=== PATIENT | female | born 1960 | race Caucasian/White ===

== ENCOUNTER 2018-03-09 07:31 | Emergency (ER) | payer SELFPAY ==
[~2018-03-09] VITALS: Ht 157.5 cm; Wt 82.0 kg
[~2018-03-09 07:31] MED LIST: CALC600T44 PO; IBUP800 PO; OXYC-360 PO
[2018-03-09 07:41] VITALS: BP 147/83; PULSE 99; RESP 17; TEMP 98.4; O2SAT 98
[2018-03-09 07:51] VITALS: BP 137/71; PULSE 94; RESP 18; TEMP 97.7; O2SAT 98
--- NOTE | 2018-03-09 07:54 | PD ---
HPI Chief Complaint: Abdominal Pain Time Seen by Provider: 07:48 Travel History International Travel<30 days: No Contact w/Intl Traveler<30days: No Traveled to known affect area: No History of Present Illness HPI This is a 57-year-old female who presents to the emergency department with 1 week of epigastric abdominal pain, intermittent, worse immediately after eating , nonradiating, with no vomiting, fevers or chills. She has had pain like this in the past and has been told it is her stomach. She went to her primary care doctor who prescribed her Pepcid but that has not been helping and her pain has been getting worse so she came to the emergency department. She has no history of abdominal surgeries. FOR[facility]LY [facility] Past Medical History Hypertension: Yes Migraines: Yes Past Surgical History Surgical History: No Previous Surgery Social History Alcohol Use: No Tobacco Use: No Substance Use: No Allergies-Medications (Allergen,Severity, Reaction): Coded Allergies: Sulfa (Sulfonamide Antibiotics) (Unverified Allergy, Intermediate, RASH, ) Reported Meds & Prescriptions Reported Meds & Active Scripts Active Review of Systems Except as stated in HPI: all other systems reviewed are Neg Physical Exam Narrative GENERAL:Well appearing, no acute distress SKIN: Focused skin assessment warm and dry. HEAD: Atraumatic. Normocephalic. EYES: Pupils equal and round. No injection or drainage. ENT: Moist mucous membranes NECK: Trachea midline. CARDIOVASCULAR: Regular rate and rhythm. No murmur appreciated. RESPIRATORY: Clear to auscultation. Breath sounds equal bilaterally. GASTROINTESTINAL: Abdomen soft, tender to palpation in the epigastrium with no rebound or guarding. MUSCULOSKELETAL: No obvious deformities. NEUROLOGICAL: Awake and alert. No obvious cranial nerve deficits. Moving all extremities. PSYCHIATRIC: Appropriate mood and affect; insight and judgment normal. Data Data Last Documented VS Vital Signs Date Time Temp Pulse Resp B/P (MAP) Pulse Ox O2 Delivery O2 Flow Rate FiO2 03/09/18 08:22 98 Room Air 03/09/18 07:51 97.7 94 18 Orders Orders Complete Blood Count With Diff (03/09/18 07:52) Comprehensive Metabolic Panel (03/09/18 07:52) Lipase (03/09/18 07:52) Us Abdomen Gallbladder (03/09/18 ) Iv Access Insert/Monitor (03/09/18 07:52) Ecg Monitoring (03/09/18 07:52) Oximetry (03/09/18 07:52) Sodium Chloride 0.9% Flush (Ns Flush) (03/09/18 08:00) Al-Mag Hy-Si 40-40-4 Mg/Ml Liq (Mag-Al P (03/09/18 08:00) Lidocaine 2% Viscous (Xylocaine 2% Visco (03/09/18 08:00) Labs Laboratory Tests Test 03/09/18 07:57 White Blood Count 9.0 TH/MM3 Red Blood Count 4.64 MIL/MM3 Hemoglobin 13.6 GM/DL Hematocrit 39.8 % Mean Corpuscular Volume 85.9 FL Mean Corpuscular Hemoglobin 29.3 PG Mean Corpuscular Hemoglobin Concent 34.1 % Red Cell Distribution Width 15.0 % Platelet Count 290 TH/MM3 Mean Platelet Volume 8.1 FL Neutrophils (%) (Auto) 63.4 % Lymphocytes (%) (Auto) 30.7 % Monocytes (%) (Auto) 4.2 % Eosinophils (%) (Auto) 1.2 % Basophils (%) (Auto) 0.5 % Neutrophils # (Auto) 5.7 TH/MM3 Lymphocytes # (Auto) 2.8 TH/MM3 Monocytes # (Auto) 0.4 TH/MM3 Eosinophils # (Auto) 0.1 TH/MM3 Basophils # (Auto) 0.0 TH/MM3 CBC Comment DIFF FINAL Differential Comment Blood Urea Nitrogen 15 MG/DL Creatinine 0.90 MG/DL Random Glucose 119 MG/DL Total Protein 7.2 GM/DL Albumin 3.3 GM/DL Calcium Level 8.6 MG/DL Alkaline Phosphatase 111 U/L Aspartate Amino Transf (AST/SGOT) 16 U/L Alanine Aminotransferase (ALT/SGPT) 17 U/L Total Bilirubin 0.3 MG/DL Sodium Level 141 MEQ/L Potassium Level 3.7 MEQ/L Chloride Level 106 MEQ/L Carbon Dioxide Level 29.0 MEQ/L Anion Gap 6 MEQ/L Estimat Glomerular Filtration Rate 64 ML/MIN Lipase 232 U/L MDM Medical Decision Making Medical Screen Exam Complete: Yes Emergency Medical Condition: Yes Interpretation(s) Afebrile, mild tachycardia, hypertensive No leukocytosis Electrolytes are reassuring Lipase is normal Ultrasound: No acute process Differential Diagnosis Cholelithiasis, cholecystitis, peptic ulcer disease, gastritis, acute coronary syndrome, pancreatitis Narrative Course This is a 57-year-old female who presents to the emergency department with several days of epigastric abdominal pain. She is tender in the epigastrium. Her pain is postprandial. Labs were obtained which were reassuring. Ultrasound demonstrates no cholelithiasis or cholecystitis. She feels improved after a GI cocktail. I suspect she has peptic ulcer disease. I did consider coronary artery disease but she is quite tender in her abdomen and her pain is postprandial. I advised her to follow-up with a produce weigher. We discussed her dietary habits and she will be prescribed a PPI and Carafate. Diagnosis Primary Impression: Peptic ulcer disease Patient Instructions: General Instructions Additional Instructions: If you develop severe or worsening abdominal pain, fever>100.4, persistent vomiting or inability to eat or drink return to the emergency department immediately. Follow up with your primary care physician in 1-2 days for a check-up. Med/Other Pt SpecificInfo: Prescription(s) given Scripts Pantoprazole (Pantoprazole) 40 Mg Tab 40 MG PO DAILY for Reflux, #30 TAB 0 Refills Prov: Fide Shultz MD 03/09/18 Sucralfate Liq (Sucralfate Liq) 1 Gram/10 Ml Tosha 1 GM PO QID for Duodenal ulcer, #1200 ML on empty stomach Prov: Fide Shultz MD 03/09/18 Disposition: 01 DISCHARGE HOME Condition: Stable Fide Shultz MD March 09, 2018 07:54
[2018-03-09] MEDS ORDERED: ALUMINUM/MAGNESIUM/SIMETH 30 ML CUP PO ONE (08:00)
[2018-03-09] MEDS ORDERED: LIDOCAINE VISCOUS 2% SOLN 15 ML UDC PO ONE (08:00)
[2018-03-09] MEDS ORDERED: SODIUM CHLORIDE 0.9% FLUSH 10 ML FLUSH IV FLUSH PRN (08:00)
[2018-03-09 08:20] LABS: AUTOMATED NEUTROPHIL # 5.7 TH/MM3 (1.8-7.7); BASOPHIL % 0.5 % (0.0-2.0); EOSINOPHIL # 0.1 TH/MM3 (0-0.4); EOSINOPHIL % 1.2 % (0.0-4.0); HEMATOCRIT 39.8 % (35.0-46.0); HEMOGLOBIN 13.6 GM/DL (11.6-15.3); LYMPH % 30.7 % (9.0-44.0); LYMPHOCYTE # 2.8 TH/MM3 (1.0-4.8); MEAN CELL VOLUME 85.9 FL (80.0-100.0); MEAN CORPUSCULAR HEMOGLOBIN 29.3 PG (27.0-34.0); MEAN CORPUSCULAR HGB CONC 34.1 % (32.0-36.0); MEAN PLATELET VOLUME 8.1 FL (7.0-11.0); MONO % 4.2 % (0.0-8.0); MONOCYTE # 0.4 TH/MM3 (0-0.9); NEUT % 63.4 % (16.0-70.0); PLATELET COUNT 290 TH/MM3 (150-450); RED BLOOD COUNT 4.64 MIL/MM3 (4.00-5.30)
[2018-03-09 08:22] VITALS: O2SAT 98
[2018-03-09 08:43] LABS: ALBUMIN 3.3 GM/DL (3.4-5.0); AST (GOT) 16 U/L (15-37); BLOOD UREA NITROGEN 15 MG/DL (7-18); CALCIUM 8.6 MG/DL (8.5-10.1); CHLORIDE 106 MEQ/L (98-107); GLOMERULAR FILTRATION RATE 64 ML/MIN (>89); GLUCOSE,RANDOM 119 MG/DL (74-106); SODIUM (NA) 141 MEQ/L (136-145)
[2018-03-09 08:44] LABS: ALT (GPT) 17 U/L (10-53)
--- NOTE | 2018-03-09 08:45 | RADRPT ---
EXAM DATE/TIME: 03/09/2018 08:21 [place] COMPARISON: No previous studies available for comparison. INDICATIONS : Epigastric pain for one week after eating. MEDICAL HISTORY : Hypertension. Migraines. SURGICAL HISTORY : None. ENCOUNTER: Initial ACUITY: 1 week PAIN SCORE: 8/10 LOCATION: Right upper quadrant MEASUREMENTS: LIVER: 15.6 cm length COMMON DUCT: 7 mm RIGHT KIDNEY: 9.3 x 4.6 x 4.4 cm FINDINGS: LIVER: Mild increased echotexture without focal lesion or ductal dilatation. COMMON DUCT: No intraluminal mass or stone visualized. GALLBLADDER: Contains no stones, demonstrates no wall thickening or pericholecystic fluid. PANCREAS: The visualized portions are within normal limits. RIGHT KIDNEY: No evidence of hydronephrosis, stone, or mass. CONCLUSION: 1. No abnormality is identified to explain the clinical symptoms. Common bile duct measures at the up per limits for normal in size. Gallbladder has a normal appearance without stones. 2. Hepatic steatosis. Mateo Castañeda MD on March 09, 2018 at 8:42 Board Certified Radiologist. This report was verified electronically.
[2018-03-09 08:46] LABS: ALKALINE PHOSPHATASE 111 U/L (45-117); TOTAL BILIRUBIN ADULT 0.3 MG/DL (0.2-1.0); TOTAL PROTEIN 7.2 GM/DL (6.4-8.2)
[2018-03-09] MEDS ORDERED: SUCR1S PO (08:57)
[2018-03-09] MEDS ORDERED: PANT40TA3 PO (08:57)
== END 2018-03-09 10:27 | disposition home or self-care (01) ==
LOC: NEPC 07:31
DX: K27.9 Peptic ulcer, site unspecified, unspecified as acute or chronic, without hemorrhage or perforation (principal)
CPT/HCPCS: 76705; 80053; 83690; 85025; 99284